=== PATIENT | male | born 1995 | race Caucasian/White ===

== ENCOUNTER 2018-09-24 16:00 | Emergency (ER) | payer BC ==
[~2018-09-24] VITALS: Ht 182.9 cm; Wt 95.3 kg
--- NOTE | 2018-09-24 16:15 | NUR ---
ED Nurse Note: Patient walked into ED from home. Friend by the bedside. Patient had Naltrexone implant on Friday09/19/18, per patient, he started having reactions (facial abcess, rash, feeling "very sick") so he took out the implant by himself on Friday09/20/18.
--- NOTE | 2018-09-24 16:16 | NUR ---
ED Nurse Note: Left posterior flank -blacked area noted that pt took off the implant.
[2018-09-24 16:28] VITALS: BP 127/74
--- NOTE | 2018-09-24 16:47 | Emergency Room Report ---
History of Present Illness General Chief Complaint: Skin Rash/Abscess Source: Patient Present Illness HPI Pt. presents to the ED c/o 05/06 in severity burning pain to multiple open wounds that have been extremely itchy. Pt. Face that he receive the naltrexone implant 3 days ago and began having an anxiety-like reaction later that evening. Patient states that he removed the implant himself but continues to have itching symptoms as well. Patient also reports tenderness at the site where he self excised not Implant He States There Is Been Progressive Erythema As Well. Patient reports history of IV drug use he states his last use was yesterday. Patient denies fevers or chills he reports abscess/infection to the left forearm at the site of a recent injection. Denies recent travel or ill contacts. Pt. denies fevers, chills or swollen tender lymph nodes. Denies lesions/rashes elsewhere on the body. Denies new medications or body washes or creams. Denies swelling of the lips, tongue , throat or airway. Denies wheezing , or shortness of breath. Denies recent travel, recent illness or ill contacts. denies blisters, oral lesions, or sloughing of the skin he denies chest pain. Allergies: Coded Allergies: No Known Allergies (Unverified , 09/24/18) Patient History Past Medical History: see triage record, migraines Past Surgical History: none Pertinent Family History: none Social History: Reports: drug use - IVDU Immunizations: UTD Reviewed Nursing Documentation: PMH: Agreed; PSxH: Agreed Nursing Documentation-PMH Past Medical History: No History, Except For History Of Psychiatric Problem: Yes - drug use Review of Systems All Other Systems: negative except mentioned in HPI Physical Exam Vital Signs Date Time Temp Pulse Resp B/P (MAP) Pulse Ox O2 Delivery O2 Flow Rate FiO2 09/24/18 16:10 98.2 18 99 Room Air 09/24/18 16:28 86 127/74 Sp02 EP Interpretation: reviewed, normal General Appearance: no apparent distress, alert, GCS 15, non-toxic Head: normocephalic, atraumatic, other - multiple scabbed lesions on the face, no blisters or vessicles Eyes: bilateral eye normal inspection, bilateral eye PERRL ENT: hearing grossly normal, no angioedema, normal voice, other - no stridor, no oral lesions Neck: full range of motion, no meningismus, no bony tend Respiratory: chest non-tender, lungs clear, normal breath sounds, no rhonchi, no respiratory distress, no accessory muscle use, no wheezing, speaking full sentences Cardiovascular #1: regular rate, rhythm, no edema, no murmur Musculoskeletal: back normal, gait/station normal, normal range of motion, non- tender Neurologic: alert, oriented x3, responsive, motor strength/tone normal, sensory intact, normal gait, speech normal, grossly normal Psychiatric: judgement/insight normal Skin: normal color, warm/dry, well hydrated, rash - pt. with scabbed lesions on the face, erythema of the arms- localized, open wound on the left post hip with surrounding erythema- no blisters or vessicles. , other - Track campbell on dorsum of hands and bilateral A/C's. Lymphatic: no adenopathy Medical Decision Making PA Attestation Dr. oreilly is my supervising Physician whom patient management has been discussed with. Diagnostic Impression: Primary Impression: Side effect of drug Additional Impression: Cellulitis Qualified Codes: L03.90 - Cellulitis, unspecified ER Course Pt. presents to the ED c/o 05/06 in severity burning pain to multiple open wounds that have been extremely itchy. Pt. Face that he receive the naltrexone implant 3 days ago and began having an anxiety-like reaction later that evening. Patient states that he removed the implant himself but continues to have itching symptoms as well. Patient also reports tenderness at the site where he self excised not Implant He States There Is Been Progressive Erythema As Well. Patient reports history of IV drug use he states his last use was yesterday. Patient denies fevers or chills he reports abscess/infection to the left forearm at the site of a recent injection. Denies recent travel or ill contacts. Pt. denies fevers, chills or swollen tender lymph nodes. Denies lesions/rashes elsewhere on the body. Denies new medications or body washes or creams. Denies swelling of the lips, tongue , throat or airway. Denies wheezing , or shortness of breath. Denies recent travel, recent illness or ill contacts. denies blisters, oral lesions, or sloughing of the skin he denies chest pain. Ddx considered but are not limited to cellulitis, SJS/TEN, Staph infection, Syphilis, Allergic Reaction, Disulfiram Rxn just to name a few. Vital signs: are WNL, pt. is afebrile H&PE are most consistent with Drug Reaction - and Cellulitis secondary to IV DU. ORDERS: none required at this time, the diagnosis is clinical ED INTERVENTIONS: None required at this time. -Concern for staph infection and will treat with MRSA coverage. Due to patient possibly having disulfiram reaction Bactrim will be avoided and treatment regimen patient will be placed onto doxycycline instead. -I do not identify an emergent condition at this time. With current presentation , pt. is stable for close outpatient follow up and conservative treatment. D/ w pt. to return promptly to ED with worsening or new symptoms.- Pt. verbalizes' understanding and agreement with proposed treatment plan.proposed treatment plan. DISCHARGE: At this time pt. is stable for d/c to home. Will provide printed patient care instructions, and any necessary prescriptions. Care plan and follow up instructions have been discussed with the patient prior to discharge. Last Vital Signs Date Time Temp Pulse Resp B/P (MAP) Pulse Ox O2 Delivery O2 Flow Rate FiO2 09/24/18 16:28 98.2 86 18 127/74 94 Room Air Disposition: HOME, SELF-CARE Condition: Stable Scripts Doxycycline Hyclate* (VIBRAMYCIN*) 100 Mg Capsule 100 MG ORAL EVERY 12 HOURS for 7 Days, #14 CAP 0 Refills Prov: Jess Handy 09/24/18 Mupirocin* (MUPIROCIN*) 22 Gm Oint...g. 1 APPLIC TOPIC THREE TIMES A DAY, #22 GM Prov: Jess Handy 09/24/18 Diphenhydramine Hcl (BENADRYL ALLERGY) 25 Mg Tablet 25 MG PO Q6HR, #20 TAB Prov: Jess Handy 09/24/18 Patient Instructions: Rash Additional Instructions: Take medications as directed. Follow up with a Primary Care Provider in 3-5 days, even if your symptoms have resolved. --Please review list of primary care clinics, if you do not already have a primary care provider Return sooner to ED if new symptoms occur, or current symptoms become worse. - Please note that this Emergency Department Report was dictated using [employer] technology software, occasionally this can lead to erroneous entry secondary to interpretation by the dictation equipment. Jess Handy Sep 24, 2018 16:47
[2018-09-24] MEDS ORDERED: VIBRAMYCIN100 MG ORAL (16:56)
[2018-09-24] MEDS ORDERED: BENADRYL ALLERG25 M1 PO (16:56)
[2018-09-24] MEDS ORDERED: MUPIROCIN22 GM TOPIC (16:56)
[2018-09-24 17:10] VITALS: BP 127/74
--- NOTE | 2018-09-24 17:11 | NUR ---
ER DISCHARGE NOTE: Patient is cleared to be discharged per ERPA, pt is aox4, on room air, with stable vital signs. pt was given dc and prescription instructions, pt was able to verbalize understanding, pt id band removed pt is able to ambulate with steady gait. pt took all belongings.
== END 2018-09-24 17:09 | disposition home or self-care (01) ==
LOC: EMR 16:48
DX: L03.90 Cellulitis, unspecified (principal); T50.7X5A Adverse effect of analeptics and opioid receptor antagonists, initial encounter; Y92.9 Unspecified place or not applicable
CPT/HCPCS: 99283